=== PATIENT | male | born 1955 | race Caucasian/White ===

== ENCOUNTER 2018-12-01 14:41 | Outpatient (CLI) | payer BC ==
--- NOTE | 2018-12-01 15:23 | RAD ---
LUMBAR SPINE 4 VIEWS: HISTORY: Ankylosing spondylitis of the lumbosacral spine. Low back pain. FINDINGS: There are mild degenerative changes in the lumbar spine. No fracture, subluxation, or bony destructi on is seen. No spondylosis or spondylolisthesis is identified. There are no radiographic signs of a nkylosing spondylitis. IMPRESSION: Lumbar spondylosis. POS: [id number]
== END 2018-12-01 14:42 | disposition home or self-care (01) ==
LOC: BICRAD 14:41
PROVIDERS: ATTEND Internal Medicine Rheumatology
DX: M45.7 Ankylosing spondylitis of lumbosacral region (principal); M47.816 Spondylosis without myelopathy or radiculopathy, lumbar region
CPT/HCPCS: 72110